=== PATIENT | male | born 1955 | race Caucasian/White ===

== ENCOUNTER 2016-11-22 15:50 | Emergency (ER) | payer MEDICAID ==
[2016-11-22] MEDS ORDERED: Ondansetron 4 MG Tab.DIS PO ONE (16:16)
[2016-11-22] MEDS ORDERED: Morphine 10 MG/ML Syringe IM ONE (16:16)
--- NOTE | 2016-11-22 16:17 | EDM.PDOC ---
ED HPI GENERAL MEDICAL PROBLEM - General Chief Complaint: Cardiovascular Problem Stated Complaint: light headedness, neck pain Time Seen by Provider: 11/22/16 15:56 Source of Information: Reports: Patient History Limitations: Reports: No Limitations - History of Present Illness INITIAL COMMENTS - FREE TEXT/NARRATIVE: Patient brought in by family after he became increasingly uncomfortable due to right shoulder and neck pain, ultimately becoming diaphoretic and dizzy and feeling like he may pass out. Turning his head triggered the near-syncopal sensation. He says that the pain in the shoulder and neck became severe at that time. Has history of right shoulder pain since falling onto that shoulder due to ice this past winter. Is scheduled to be seen for the shoulder in a few weeks for further workup. Does not recall if he is to be seen by Ortho. Pain in shoulder is in same distribution as it has been, just more intense. [place] and doesn't recall any specific activity that may have aggravated the pain. No numbness/tingling. No complaint of pain anywhere else. Any movement of right shoulder makes the pain worse. Neck movement only slightly so. No changes with breathing. ROS otherwise negative except for loose stools over the past week. No report of bloody/tarry stools. Has not tried any OTC meds. No other GI complaints. Says he felt that he was at his "baseline" earlier today prior to [place] the [place]. right shoulder Pain Score (Numeric/FACES): 10 - Related Data Allergies Allergy/AdvReac Type Severity Reaction Status Date / Time codeine Allergy Nausea Verified 11/22/16 15:52 Home Meds: Home Meds Aspirin 81 mg PO DAILY 11/22/16 [History] B Complex & C No.20/Folic Acid [Renal Caps Softgel] 1 tab PO DAILY 11/22/16 [ History] Carvedilol [Carvedilol] 25 mg PO BID 11/22/16 [History] Ferrous Sulfate 325 mg PO BID 11/22/16 [History] Gabapentin [Neurontin] 100 mg PO TID 11/22/16 [History] Insulin Aspart [NovoLOG] 5 units SUBCUT DAILY@1200 11/22/16 [History] Insulin Aspart [NovoLOG] 15 units SUBCUT BID 11/22/16 [History] Insulin Glarg,Human.Rec.Analog [LantUS Solostar] 62 - 65 units SUBCUT DAILY [History] Isosorbide Mononitrate [Isosorbide Mononitrate ER] 120 mg PO DAILY 11/22/16 [ History] Lisinopril 10 mg PO DAILY 11/22/16 [History] Nitroglycerin [IJP: Nitroglycerin] 0.4 mg SL ASDIRECTED PRN 11/22/16 [History] Omeprazole 20 mg PO QPM 11/22/16 [History] Pantoprazole [ProTONIX] 40 mg PO QAM 11/22/16 [History] Ticagrelor [Brilinta] 90 mg PO BID 11/22/16 [History] amLODIPine [Norvasc] 5 mg PO DAILY 11/22/16 [History] atorvaSTATin Calcium [Atorvastatin Calcium] 80 mg PO BEDTIME 11/22/16 [History] hydrALAZINE HCl [Hydralazine HCl] 50 mg PO TID 11/22/16 [History] Past Medical History Cardiovascular History: Reports: CAD, High Cholesterol, Hypertension, Stents Gastrointestinal History: Reports: GERD Musculoskeletal History: Reports: Back Pain, Chronic, Neck Pain, Chronic Neurological History: Reports: Neuropathy, Peripheral Endocrine/Metabolic History: Reports: IDDM, Obesity/BMI 30+, Other (See Below) ( Chronic kidney disease stage 4) Hematologic History: Reports: Anemia, Iron Deficiency Social & Family History - Tobacco Use Smoking Status *Q: Never Smoker - Alcohol Use Alcohol Use History: Yes ED ROS GENERAL - Review of Systems Review Of Systems: See Below Constitutional: Reports: No Symptoms HEENT: Reports: No Symptoms Respiratory: Reports: No Symptoms Cardiovascular: Reports: No Symptoms. Denies: Chest Pain, Palpitations GI/Abdominal: Reports: Diarrhea (Has has loose stools for awhile, several daily. Has not tried Imodium.). Denies: Abdominal Pain, Anorexia, Black Stool , Bloody Stool, Constipation, Decreased Appetite, Hematemesis, Hematochezia, Melena, Mucous in Stool, Stool Incontinence, Vomiting : Reports: No Symptoms Musculoskeletal: Reports: Neck Pain, Shoulder Pain Skin: Reports: No Symptoms Neurological: Reports: Dizziness. Denies: Confusion, Headache, Numbness, Paresthesia, Pre-Existing Deficit, Seizure, Syncope, Tingling, Tremors, Trouble Speaking, Difficulty Walking, Weakness, Change in Speech, Gait Disturbance Psychiatric: Reports: No Symptoms Hematologic/Lymphatic: Reports: No Symptoms ED EXAM, GENERAL - Physical Exam Exam: See Below General Appearance: Alert, WD/WN, Anxious Eye Exam: Bilateral Eye: EOMI, PERRL Ears: Normal External Exam, Normal Canal, Hearing Grossly Normal, Normal TMs Nose: Normal Inspection Throat/Mouth: Normal Inspection, Normal Lips, Normal Teeth, Normal Voice, No Airway Compromise Head: Atraumatic, Normocephalic Neck: Normal Inspection, Supple, Non-Tender, Full Range of Motion. No: Lymphadenopathy (L), Lymphadenopathy (R), Tender Lateral, Tender Midline ( unable to trigger pain with palpation) Respiratory/Chest: No Respiratory Distress, Lungs Clear, Normal Breath Sounds, No Accessory Muscle Use, Chest Non-Tender Cardiovascular: Normal Peripheral Pulses, Regular Rate, Rhythm, No Edema, No Murmur Peripheral Pulses: 2+: Radial (L), Radial (R) GI/Abdominal: Normal Bowel Sounds, Soft, Non-Tender, No Distention (Male) Exam: Deferred Rectal (Males) Exam: Deferred Back Exam: Normal Inspection. No: CVA Tenderness (L), CVA Tenderness (R), Muscle Spasm, Paraspinal Tenderness, Vertebral Tenderness Extremities: No Pedal Edema, Normal Capillary Refill, Other (Did not wish to move right shoulder due to exacerbation of shoulder pain. Palpation of shoulder yielded mild diffuse tenderness but non-focal. Good rail switch operator strength bilaterally. No obvious neuro deficits noted.). No: Joint Swelling, Increased Warmth, Redness Neurological: Alert, Oriented, Normal Cognition Psychiatric: Anxious Skin Exam: Warm, Dry, Intact, Normal Color, No Rash EKG INTERPRETATION EKG Date: 11/22/16 Time: 16:22 Rhythm: NSR Rate (Beats/Min): 70 Rhodell: LAD-Left Rhodell Deviation P-Wave: Present QRS: Normal ST-T: Normal QT: Normal Comparison: NA - No Prior EKG Course - Vital Signs Last Recorded V/S: Last Vital Signs Temp 36.8 C 11/22/16 16:10 Pulse 68 11/22/16 18:00 Resp 14 11/22/16 18:00 BP 134/80 11/22/16 18:00 Pulse Ox 99 11/22/16 18:00 - Orders/Labs/Meds Orders: Active Orders 24 hr Category Date Time Status EKG Documentation Completion [RC] ASDIRECTED Care 11/22/16 16:15 Active Chest 2V [CR] Stat Exams 11/22/16 16:15 Taken Sodium Chloride 0.9% [Normal Saline] 500 ml Med 11/22/16 17:45 Active IV .BOLUS Medication Orders Sodium Chloride (Normal Saline) 500 mls @ 999 mls/hr IV .BOLUS MARIA D Last Admin: 11/22/16 18:21 Dose: 999 mls/hr Labs: Laboratory Tests 11/22/16 11/22/16 Range/Units 16:05 16:05 WBC 8.3 (4.0-10.2) K/uL RBC 3.51 L (4.33-5.41) M/uL Hgb 10.3 L (13.1-16.8) g/dL Hct 30.5 L (39.0-49.0) % MCV 86.9 (84.0-98.0) fL MCH 29.3 (28.2-33.3) pg MCHC 33.8 (31.7-36.0) g/dL RDW 13.2 (11.2-14.1) % Plt Count 213 (150-350) K/uL Neut % (Auto) 70.3 (45.0-80.0) % Lymph % (Auto) 18.8 (10.0-50.0) % Burnet % (Auto) 6.0 (2.0-14.0) % Eos % (Auto) 4.5 (0.0-5.0) % Baso % (Auto) 0.4 (0.0-2.0) % Neut # (Auto) 5.83 (1.40-7.00) K/uL Lymph # (Auto) 1.56 (0.50-3.50) K/uL Burnet # (Auto) 0.50 (0.00-1.00) K/uL Eos # (Auto) 0.37 (0.00-0.50) K/uL Baso # (Auto) 0.03 (0.00-0.20) K/uL Sodium 137 (136-145) mmol/L Potassium 5.1 (3.5-5.1) mmol/L Chloride 107 (98-107) mmol/L Carbon Dioxide 17.8 L (21.0-32.0) mmol/L BUN 45 H (7-18) mg/dL Creatinine 3.10 H* (0.51-1.17) mg/dL Est Cr Clr Drug Dosing 27.12 mL/min Estimated GFR (MDRD) 21 mL/min Glucose 270 H* (74-106) mg/dL Calcium 7.8 L (8.5-10.1) mg/dL Total Bilirubin 0.3 (0.2-1.0) mg/dL AST 28 (15-37) U/L ALT 43 (12-78) U/L Alkaline Phosphatase 101 (46-116) IU/L Creatine Kinase 198 (26-308) U/L Creatine Kinase Index 2.9 H (0.0-2.5) % CK-MB (CK-2) 5.70 H* (0.00-3.60) ng/mL Troponin I 0.000 (0.000-0.056) ng/mL Total Protein 7.2 (6.4-8.2) g/dL Albumin 3.6 (3.4-5.0) g/dL Meds: Medications Generic Name Dose Route Start Last Admin Trade Name Freq PRN Reason Stop Dose Admin Sodium Chloride 500 mls @ 999 mls/hr 11/22/16 17:45 11/22/16 18:21 Normal Saline IV 999 mls/hr .BOLUS MARIA D Administration Discontinued Medications Generic Name Dose Route Start Last Admin Trade Name Freq PRN Reason Stop Dose Admin Diazepam 5 mg 11/22/16 19:43 Valium IVPUSH 11/22/16 19:44 ONETIME ONE Diazepam 5 mg 11/22/16 19:59 11/22/16 20:06 Valium. PO 11/22/16 20:00 5 mg ONETIME ONE Administration Diphenhydramine HCl 50 mg 11/22/16 18:45 11/22/16 18:55 Benadryl IVPUSH 11/22/16 18:46 50 mg ONETIME ONE Administration Magnesium Oxide 400 mg 11/22/16 19:43 11/22/16 20:06 Magnesium Oxide PO 11/22/16 19:44 400 mg ONETIME ONE Administration Morphine Sulfate 5 mg 11/22/16 16:16 11/22/16 16:25 Morphine IM 11/22/16 16:17 Not Given ONETIME ONE Morphine Sulfate 5 mg 11/22/16 16:22 11/22/16 16:30 Morphine IV 11/22/16 16:23 5 mg ONETIME ONE Administration Morphine Sulfate 5 mg 11/22/16 17:10 11/22/16 18:31 Morphine IVPUSH 11/22/16 17:11 5 mg ONETIME ONE Administration Ondansetron HCl 4 mg 11/22/16 16:16 11/22/16 16:25 Zofran Odt PO 11/22/16 16:17 Not Given ONETIME ONE Ondansetron HCl 4 mg 11/22/16 16:22 11/22/16 16:37 Zofran IVPUSH 11/22/16 16:23 4 mg ONETIME ONE Administration Prednisone 40 mg 11/22/16 18:04 11/22/16 18:20 Prednisone PO 11/22/16 18:05 40 mg ONETIME ONE Administration - Radiology Interpretation Free Text/Narrative:: Chest film did not show acute infiltrates. No pneumo noted. - Re-Assessments/Exams Free Text/Narrative Re-Assessment/Exam: Patient felt better after MS. Sleeping at times. Continued to complain of shoulder and neck discomfort. EKG did not show acute ST changes. Troponin negative. Cr elevated at 3.1. WBC normal. Hgb decreased at 10.3, suspect secondary to chronic kidney disease. Glu 270. Patient says that is normal range for him. CK 2.9, CKMB 5.7 Call placed to [facility] where patient normally is seen for his medical issues. Discussed presentation and evaluation with , on-call Senior Process Engineer. It was felt that given the history, presentation, exam, and workup that patient complaint is not likely due to cardiac issue. It appears to be musculoskeletal in nature. Plan at this time is to have patient follow up as scheduled for evaluation of the shoulder pain. He is also to contact his primary provider tomorrow and relay todays Bun/Cr results and schedule further follow up as needed. Extensive precautions reviewed prior to discharge. Free Text/Narrative Re-Assessment/Exam: 11/22/16 18:55 Patient noted to develop small area of urticarial-type lesions near IV site after second dose of morphine. Benadryl given. No anaphylaxis noted. Free Text/Narrative Re-Assessment/Exam: 11/22/16 20:07 Patient is feeling better. Sitting up, looking more comfortable. Able to move neck and right shoulder easier. No sign of discomfort when visiting with him while he sat on the side of the bed. Did complain of some leg cramping. This could be side effect of the morphine. Rash improved. He feels comfortable being discharged home. Precautions reviewed prior to discharge. Recommend PRN Benadryl if rash/itching return. Will give single low dose Valium at time of discharge to help with muscle cramping along with single dose magnesium. He is to follow up by phone with his provider tomorrow and arrange further planning as needed at that time. Departure - Departure Time of Disposition: 19:59 Disposition: Home, Self-Care 01 Condition: Good Clinical Impression: Neck pain on right side Right shoulder pain Qualifiers: Chronicity: chronic Qualified Code(s): M25.511 - Pain in right shoulder Chronic kidney disease Qualifiers: Chronic kidney disease stage: stage 4 (severe) Qualified Code(s): N18.4 - Chronic kidney disease, stage 4 (severe) Referrals: PCP,Not In Area [Primary Care Provider] - Forms: ED Department Discharge Additional Instructions: Home, rest. Stay hydrated. Follow up as scheduled for evaluation of the chronic shoulder pain. Call your primary provider tomorrow and tell them that your creatinine was 3.1 today. See when they wish for you to follow up for repeat labs. Follow up otherwise as needed if worsening problems develop. - My Orders Last 24 Hours: My Active Orders 11/22/16 16:15 EKG Documentation Completion [RC] ASDIRECTED Chest 2V [CR] Stat 11/22/16 17:45 Sodium Chloride 0.9% [Normal Saline] 500 ml IV .BOLUS - Assessment/Plan Last 24 Hours: My Active Orders 11/22/16 16:15 EKG Documentation Completion [RC] ASDIRECTED Chest 2V [CR] Stat 11/22/16 17:45 Sodium Chloride 0.9% [Normal Saline] 500 ml IV .BOLUS
[2016-11-22] MEDS ORDERED: Ondansetron 4 MG/2 ML SDV IVPUSH ONE (16:22)
[2016-11-22] MEDS ORDERED: Morphine 10 MG/ML Syringe IV ONE (16:22)
[2016-11-22] MEDS ORDERED: Morphine 10 MG/ML Syringe IVPUSH ONE (17:10)
[2016-11-22] MEDS ORDERED: Sodium Chloride 0.9% 500 ML IV SCH (17:45)
[2016-11-22] MEDS ORDERED: predniSONE 20 MG Tab PO ONE (18:04)
[2016-11-22] MEDS ORDERED: diphenhydrAMINE 50 MG/ML SDV IVPUSH ONE (18:45)
[2016-11-22] MEDS ORDERED: Magnesium Oxide 400 MG Tab PO ONE (19:43)
[2016-11-22] MEDS ORDERED: Diazepam 5 MG Tab PO ONE (19:59)
[2016-11-22 21:07] VITALS: BP 178/66
== END 2016-11-22 20:15 | disposition home or self-care (01) ==
LOC: LL.ED 15:50
DX: M25.511 Pain in right shoulder (principal); M54.2 Cervicalgia; I12.0 Hypertensive chronic kidney disease with stage 5 chronic kidney disease or end stage renal disease; N18.4 Chronic kidney disease, stage 4 (severe); I25.10 Atherosclerotic heart disease of native coronary artery without angina pectoris; E78.00 Pure hypercholesterolemia, unspecified; E66.9 Obesity, unspecified; D64.9 Anemia, unspecified; K21.9 Gastro-esophageal reflux disease without esophagitis; E11.9 Type 2 diabetes mellitus without complications; Z88.5 Allergy status to narcotic agent; Z79.82 Long term (current) use of aspirin; Z79.899 Other long term (current) drug therapy; Z79.4 Long term (current) use of insulin
CPT/HCPCS: 36415; 71020; 80053; 82550; 82553; 84484; 85025; 93005; 96361; 96374; 96375; 96376; 99284; A9270; J1200; J2270; J2405; J7040